=== PATIENT | male | born 2000 | race Two or more races ===

== ENCOUNTER 2024-06-18 02:37 | Inpatient (IN) | payer MEDICAID ==
[~2024-06-18] VITALS: Ht 162.6 cm; Wt 51.5 kg
[2024-06-18 03:14] LABS: BASOPHILS % (AUTO) 0.4 % (0.0-2.0); EOSINOPHILS % (AUTO) 1.1 % (1.0-6.0); HEMOGLOBIN 15.2 g/dL (13.5-17.5); LYMPHOCYTES # (AUTO) 1.3 K/uL (1.0-4.8); LYMPHOCYTES % (AUTO) 22.1 % (22.0-44.0); MEAN CORPUSCULAR HEMOGLOBIN 31.5 pg (26.0-34.0); MEAN CORPUSCULAR HGB CONC 33.7 G/dL (31.0-37.0); MEAN CORPUSCULAR VOLUME 93 fL (80-100); MONOCYTES # (AUTO) 0.2 K/uL (0.1-1.0); NEUTROPHILS # (AUTO) 4.2 K/uL (1.8-7.7); NEUTROPHILS % (AUTO) 72.4 % (40.0-70.0); PLATELET COUNT (AUTO) 238 K/uL (150-450); RED BLOOD CELL COUNT(AUTO) 4.82 MIL/uL (4.50-5.90); RED CELL DISTRIBUTION WIDTH 13.7 % (11.5-14.5); WHITE BLOOD COUNT (AUTO) 5.8 K/uL (4.5-11.0)
[2024-06-18 03:26] LABS: ALCOHOL, BLOOD (SERUM) 166 mg/dL (0-10)
[2024-06-18 03:35] LABS: ANION GAP 11 mmol/L (8-16); CALCIUM, TOTAL 8.4 mg/dL (8.8-10.5); CARBON DIOXIDE 28 mmol/L (22-29); CHLORIDE 105 mmol/L (98-107); CREATININE 0.78 mg/dL (0.60-1.30); GLOMERULAR FILTR. RATE CALC > 60 mL/min (>60); GLUCOSE,RANDOM 115 mg/dL (70-110); POTASSIUM 4.4 mmol/L (3.5-5.1); SODIUM SERUM 144 mmol/L (136-145); UREA NITROGEN, BLOOD 4 mg/dL (7-18)
[2024-06-18] MEDS: PERTUSS(ACELL),DIPH,TET/PF 0.5 ML SYRINGE [ADULT] IM. ONE (04:12)
[2024-06-18 04:41] LABS: COVID AG,FIA SOURCE NASAL SWAB
[2024-06-18 05:11] LABS: SARS-COV2 (COVID) ANTIGEN,FIA Negative (Negative)
[2024-06-18 09:24] LABS: PH,URINE DRUG SCREEN 5.5 (5.0-8.0)
[2024-06-18 10:04] LABS: ALCOHOL, URINE DRUG SCREEN POSITIVE (NEGATIVE); AMPHET/METH SCREEN,URINE NEGATIVE (NEGATIVE); BARBITURATE SCREEN, URINE NEGATIVE (NEGATIVE); BENZODIAZEPINES SCREEN,URINE NEGATIVE (NEGATIVE); CANNABINOID SCREEN,URINE NEGATIVE (NEGATIVE); COCAINE SCREEN,URINE POSITIVE (NEGATIVE); METHADONE SCREEN, URINE NEGATIVE (NEGATIVE); OPIATE SCREEN,URINE NEGATIVE (NEGATIVE); PHENCYCLIDINE SCREEN,URINE NEGATIVE (NEGATIVE)
[2024-06-18] MEDS ORDERED: GuaiFENesin/D-METHORPHAN [SUGAR-FREE] 200-20MG/10 ML SYRUP UDCUP PO PRN (11:15)
[2024-06-18] MEDS ORDERED: MAGNESIUM HYDROXIDE SUSPENSION 30 ML UDCUP PO PRN (11:15)
[2024-06-18] MEDS ORDERED: ACETAMINOPHEN 325 MG TABLET PO PRN (11:15)
[2024-06-18] MEDS ORDERED: PROMETHAZINE HCL 25 MG TABLET PO PRN (11:15)
[2024-06-18] MEDS ORDERED: OLANZapine 5 MG RAPDIS TABLET PO PRN (11:15)
[2024-06-18] MEDS ORDERED: LOPERAMIDE HCL 2 MG CAPSULE PO PRN (11:15)
[2024-06-18] MEDS ORDERED: TUBERCULIN, PURIFIED PROTEIN DERIVATIVE 5 TU/0.1 ML SYRINGE ID ONE (11:15)
[2024-06-18] MEDS ORDERED: MAG HYDROX/ALUMINUM HYD/SIMETH ES 30 ML SUSPENSION UDCUP PO PRN (11:15)
[2024-06-18] MEDS ORDERED: LORazepam 2 MG TABLET PO PRN (11:15)
[2024-06-18] MEDS: MELATONIN 5 MG TABLET PO SCH (21:52)
[2024-06-18] MEDS: THIAMINE 100 MG TABLET PO SCH (21:52)
[2024-06-18] MEDS: LORazepam 2 MG TABLET PO PRN (21:52)
[2024-06-18] MEDS: MIRTAZAPINE 15 MG TABLET PO SCH (21:52)
[2024-06-18] MEDS: CYANOCOBALAMIN 1,000 MCG/ML VIAL IM ONE (21:53)
[2024-06-18 22:29] VITALS: BP 105/60; PULSE 65; RESP 16; TEMP 98.9; O2SAT 98
[2024-06-18 22:31] VITALS: BP 105/60; PULSE 65; RESP 16; TEMP 98.9; O2SAT 98
[2024-06-18 23:37] VITALS: BP 103/63; PULSE 63; RESP 16; TEMP 98.7; O2SAT 98
[2024-06-19] VITALS (8 sets, daily range): BP systolic 98–111; BP diastolic 60–68; PULSE 63–99; RESP 16–18; TEMP 97.6–98.7; O2SAT 98–99
[2024-06-19] MEDS ORDERED: LORazepam 2 MG TABLET PO PRN (07:00)
[2024-06-19] MEDS: FOLIC ACID 1 MG TABLET PO SCH (08:28)
[2024-06-19] MEDS: MULTIVITAMINS WITH MINERALS, THERAPEUTIC TABLET PO SCH (08:28)
[2024-06-19] MEDS: NALTREXONE HCL 50 MG TABLET PO SCH (08:28)
[2024-06-19] MEDS: LORazepam 2 MG TABLET PO SCH (08:29)
[2024-06-19 08:35] LABS: HEMOGLOBIN A1C 5.4 % (3.8-5.6)
[2024-06-19 08:49] LABS: CHOL/HDL RATIO 1.7 (4.2-7.3); FREE T4 (FREE THYROXINE) 0.87 ng/dL (0.76-1.46); THYROID STIMULATING HORMONE 1.46 uIU/mL (0.36-3.74)
[2024-06-20] VITALS (7 sets, daily range): BP systolic 100–124; BP diastolic 60–79; PULSE 61–82; RESP 16–18; TEMP 96.8–97.8; O2SAT 97–98
[2024-06-20] MEDS: HydrOXYzine PAMOATE 50 MG CAPSULE PO PRN (08:20)
[2024-06-20] MEDS: ZOLPIDEM TARTRATE 10 MG TABLET PO PRN (21:23)
[2024-06-21] MEDS ORDERED: LORazepam 1 MG TABLET PO PRN (07:00)
[2024-06-21] MEDS: LORazepam 1 MG TABLET PO SCH (08:49)
[2024-06-21] MEDS ORDERED: MELA5TAB40 PO (08:57)
[2024-06-21] MEDS ORDERED: MIRT-89 PO (08:57)
[2024-06-21] MEDS ORDERED: NALT50TA33 PO (08:57)
[2024-06-21 10:01] VITALS: BP 107/60; PULSE 98; RESP 18; O2SAT 99
[2024-06-21] MEDS ORDERED: LOPERAMIDE HCL 2 MG CAPSULE PO PRN (11:15)
[2024-06-21 12:30] VITALS: BP 107/60; PULSE 98; RESP 18; TEMP 97.8; O2SAT 98
[2024-06-22] MEDS ORDERED: LORazepam 1 MG TABLET PO PRN (07:00)
== END 2024-06-21 13:17 | disposition home or self-care (01) | DRG 751 ==
LOC: EMS 02:37 → B3A 21:11
PROVIDERS: ADMIT Psychiatry & Neurology Psychiatry; ATTEND Psychiatry & Neurology Psychiatry
PROC: GZHZZZZ Group Psychotherapy (ICD-10-PCS; principal; 2024-06-19)
PROC: GZ58ZZZ Individual Psychotherapy, Cognitive-Behavioral (ICD-10-PCS; 2024-06-19)
DX: F32.2 Major depressive disorder, single episode, severe without psychotic features (principal); R45.851 Suicidal ideations; F17.200 Nicotine dependence, unspecified, uncomplicated; F19.10 Other psychoactive substance abuse, uncomplicated; S61.511A Laceration without foreign body of right wrist, initial encounter; Z20.822 Contact with and (suspected) exposure to COVID-19; S61.512A Laceration without foreign body of left wrist, initial encounter; R73.9 Hyperglycemia, unspecified; Z59.00 Homelessness unspecified; X58.XXXA Exposure to other specified factors, initial encounter; Y93.89 Activity, other specified; Y92.89 Other specified places as the place of occurrence of the external cause; Y99.8 Other external cause status
CPT/HCPCS: 80048; 80061; 80307; 83036; 84439; 84443; 85025; 86592; 90715; 99285; G0480; J3420